=== PATIENT | female | born 1960 | race African-American/Black ===

== ENCOUNTER 2021-07-15 10:44 | Day surgery (SDC) | payer OTHER ==
[2021-07-10 18:42] VITALS: BMI 25.2
[2021-07-15] MEDS ORDERED: ROPIVACAINE HCL 0.5% 30ML VIAL ONE (11:05)
[2021-07-15] MEDS ORDERED: MIDAZOLAM HCL 2 MG/2 ML SINGLE DOSE VIAL ONE (11:05)
[2021-07-15] MEDS ORDERED: DEXAMETHASONE SOD PHOSPHATE 10 MG/1 ML VIAL ONE (12:28)
[2021-07-15] MEDS ORDERED: PROPOFOL 20 ML ONE ×4 (12:40→13:18)
[2021-07-15] MEDS ORDERED: fentaNYL CITRATE 250 MCG/5 ML VIAL ONE (12:40)
[2021-07-15] MEDS ORDERED: ONDANSETRON 4 MG/2 ML VIAL IVPUSH PRN (14:53)
[2021-07-15] MEDS ORDERED: PROMETHAZINE HCL 25 MG/1 ML VIAL IVPUSH PRN (14:53)
[2021-07-15] MEDS ORDERED: oxyCODONE HCL 5 MG TABLET PO PRN ×2 (14:53)
[2021-07-15 15:07] VITALS: TEMP 97.8
[2021-07-15 16:15] VITALS: BP 138/74; PULSE 55
== END 2021-07-15 16:00 | disposition home or self-care (01) ==
LOC: FASU 10:44
PROVIDERS: ATTEND Orthopaedic Surgery
PROC: 0RBJ4ZZ Excision of Right Shoulder Joint, Percutaneous Endoscopic Approach (ICD-10-PCS; 2021-07-15)
PROC: 0MM14ZZ Reattachment of Right Shoulder Bursa and Ligament, Percutaneous Endoscopic Approach (ICD-10-PCS; 2021-07-15)
PROC: 0PB94ZZ Excision of Right Clavicle, Percutaneous Endoscopic Approach (ICD-10-PCS; principal; 2021-07-15 13:27)
DX: M25.611 Stiffness of right shoulder, not elsewhere classified (principal); S43.431A Superior glenoid labrum lesion of right shoulder, initial encounter; X58.XXXA Exposure to other specified factors, initial encounter; Y93.9 Activity, unspecified; Y92.9 Unspecified place or not applicable; M75.41 Impingement syndrome of right shoulder; M24.111 Other articular cartilage disorders, right shoulder; M24.011 Loose body in right shoulder; M67.211 Synovial hypertrophy, not elsewhere classified, right shoulder; M75.101 Unspecified rotator cuff tear or rupture of right shoulder, not specified as traumatic
CPT/HCPCS: 94760; J1100